=== PATIENT | female | born 1950 | race Caucasian/White ===

== ENCOUNTER → 2024-12-16 17:49 | Outpatient (REF) | payer OTHER, SELFPAY | LOC: MRI 3T 17:49 | PROVIDERS: ATTENDING PHYSICIAN Orthopaedic Surgery; FAMILY PHYSICIAN Family Medicine | DX: M23.91 Unspecified internal derangement of right knee (principal) | CPT/HCPCS: 73721 ==

== ENCOUNTER 2025-05-07 17:08 | Emergency (ER) | payer OTHER, SELFPAY ==
[2025-05-07 17:16] VITALS: BP 176/87
[2025-05-07 17:54] LABS: % Basophils 0.7 % (0-2); % Eosinophils 1.6 % (0-6); % Immature Granulocytes 0.3 % (0-0.5); % Lymphocytes 22.3 % (20.5-51.1); % Monocytes 6.6 % (1.7-9.3); % Neutrophils 68.5 % (42.2-75.2); Absolute Basophils 0.1 10^3/uL (0-0.2); Absolute Eosinophils 0.1 10^3/uL (0-0.7); Absolute Lymphocytes 1.9 10^3/uL (1.2-3.4); Absolute Monocytes 0.6 10^3/uL (0.1-0.6); Absolute Neutrophils 5.9 10^3/uL (1.4-6.5); Hematocrit 41.6 % (37.0-47.0); Hemoglobin 14.5 g/dL (12.0-16.0); Mean Corp Hgb Conc. 34.9 g/dL (33.0-37.0); Mean Corpuscular Hgb 32.2 pg (27.0-31.0); Mean Corpuscular Volume 92.4 fL (81.0-99.0); Mean Platelet Volume 9.4 fL (7.4-10.4); Nucleated Red Blood Cells % 0 %; Platelet Count 294 10^3/uL (130-400); Red Cell Dist. Width 12.6 % (11.5-14.5); White Blood Cell Count 8.6 10^3/uL (4.8-10.8)
[2025-05-07 18:00] VITALS: BP 126/78
[2025-05-07 18:06] LABS: INR 0.95; PT 12.9 Sec (11.4-14.6)
--- NOTE | 2025-05-07 18:14 | ED.GENMED ---
History of Present Illness
General
Chief Complaint: Heart Rate Problem
Source: patient
Time Seen by Provider: 05/07/25 17:41
History of Present Illness
History of Present Illness:
Note:
CHIEF COMPLAINT(S)
Persistent numbness, depression, poor sleep quality, and anxiety.
HISTORY OF PRESENT ILLNESS
The patient is a 74-year-old female with a history of alcohol recovery and long-term use of antidepressants, presenting with a several-week history of persistent numbness, depression, and anxiety. The patient reports a previous leg injury that
triggered feelings of helplessness, and associates these symptoms with her PTSD. She has been weaned off clonidine and Lexapro, and her current regimen is insufficient. She experiences sleep disturbances, averaging four hours of sleep per night,
sometimes accompanied by nightmares and feelings of faintness. The patient is also concerned about potential withdrawal symptoms from the cessation of her prior medications. She reports recurrent headaches and feelings of frustration and fear
regarding her mental state.
ADDITIONAL HISTORY OBTAINED FROM SOURCES OTHER THAN THE PATIENT
No information discussed.
EXTERNAL RECORDS REVIEWED
No information discussed.
CHRONIC MEDICAL CONDITIONS SIGNIFICANTLY AFFECTING CARE
- Alcohol recovery
- PTSD
- Panic disorder
- History of myocardial infarction in 2002
SOCIAL DETERMINANTS AFFECTING HEALTH
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
MEDICATIONS
- Previous clonidine and Lexapro were discontinued.
- PRN clonazepam 0.5 mg for anxiety and sleep.
REVIEW OF SYSTEMS
- Neurological: Complains of persistent numbness and headache.
- Psychiatric: Depression, anxiety, PTSD, poor sleep, feeling emotionally numb, frustrated, and fearful.
- Cardiovascular: Concerns of dehydration and history of myocardial infarction.
- Musculoskeletal: History of a leg injury, healed through rest.
- General: Overall weakness and fatigue.
PHYSICAL EXAM
- General: Vital signs reviewed. Pupils are equal, round, and reactive to light. The neurological assessment shows no focal deficits, and cranial nerves are intact. Psychiatric assessment reveals normal insight and judgment.
- Cardiovascular: Heart rhythm is regular with no murmurs detected.
- Respiratory: Lungs are clear to auscultation and there is no evidence of respiratory distress.
- Abdominal: The abdomen is non-tender on examination.
PROBLEM LIST
Acute Problems:
- Numbness
- Depression
- Sleep disturbances
- Headache
Chronic Problems:
- PTSD
- Panic disorder
PLAN
The patient will undergo laboratory evaluations to check sodium levels, hemoglobin, white blood cell count, and hormonal levels. After reviewing these findings, a more targeted plan will be developed.
DIFFERENTIAL DIAGNOSIS
The Differential Diagnosis includes, in no particular order and is not limited to:
1. Major depressive disorder
2. Generalized anxiety disorder
3. Medication withdrawal syndrome
4. PTSD exacerbation
5. Sleep disorder
6. Chronic pain syndrome
7. Substance-induced mood disorder
8. Cognitive dysfunction secondary to vascular issues
9. Electrolyte imbalance
10. Hormonal imbalance
Disposition:
DIAGNOSIS
- Generalized Anxiety Disorder (F41.1)
- Major Depressive Disorder (F32.9)
SUMMARY OF ENCOUNTER
The patient, a 74-year-old female, presented with persistent numbness, depression, anxiety, and sleep disturbances. She has been off her previous medications, including clonidine and Lexapro, which has likely contributed to her current mental health
state. Concerned about possible withdrawal symptoms, she reported recurrent headaches and sleep disturbances with only four hours of sleep per night accompanied by nightmares. After evaluation, her condition was determined to not require emergent
intervention at this time.
DISPOSITION
Discharge
CONSIDERATION FOR ADMISSION
There is no definitive need for admission. The patients condition warrants close outpatient psychiatric follow-up for medication management.
ASSESSMENT
The patients symptoms appear to be related to previous medication discontinuation and are consistent with her history of depression, anxiety, and PTSD.
PLAN
The plan is to refer the patient back to her psychiatrist for further management and consideration of resuming or adjusting her medication regimen, taking into account her history of trials with multiple antidepressants and antipsychotics.
INDEPENDENT INTERPRETATION OF TESTS
My independent interpretation of the CBC is normal, indicating no acute infection or hematological abnormalities.
My independent interpretation of the CMP is normal, suggesting no electrolyte imbalance or organ dysfunction.
My independent interpretation of the EKG is normal, indicating her cardiovascular status is stable.
FOLLOW-UP INSTRUCTIONS
The patient should follow up closely with her psychiatrist to adjust medications as necessary.
MEDICAL DECISION MAKING
Number and Complexity of Problems Addressed: The patient presented with sleep disturbances, numbness, depression, and anxiety. Her past and present medication history, coupled with her psychiatric conditions, demand close scrutiny and highlight the
complexity of her case.
Data: The normal CBC, CMP, and EKG results were all interpreted and confirm no acute physiological derangements impacting the current symptoms.
Risk: The patients care plan was impacted by her psychiatric condition and need for outpatient management concerning her psychiatric medication adjustment.
Phy Exam
Physical Exam
Physical Exam:
.
Course
Orders/Labs/Results
Orders:
Orders
05/07/25 17:12
EKG [Electrocardiogram (*1)] Urgent
Reason for Study: Chest Pain
EKG- Treatment ONCE
05/07/25 17:47
Complete Blood Count/With Diff Urgent
Comprehensive Metabolic Panel Urgent
Prothrombin Time Urgent
Troponin I Urgent
Abnormal Lab Results
05/07/25
17:47
MCH 32.2 H pg
(27.0-31.0)
Creatinine 0.5 L mg/dL
(0.6-1.0)
Glucose 105 H mg/dl
(70-99)
05/07/25 17:47
05/07/25 17:47
Vital Signs
Initial and Last Documented VS:
Initial Vital Signs
Temp Pulse Resp BP Pulse Ox
97.8 F 91 16 176/87 98
05/07/25 17:16 05/07/25 17:16 05/07/25 17:16 05/07/25 17:16 05/07/25 17:16
Last Documented Vital Signs
Temp Pulse Resp BP Pulse Ox
97.8 F 80 19 134/82 98
05/07/25 17:16 05/07/25 19:03 05/07/25 19:03 05/07/25 19:10 05/07/25 19:03
*Pulse Oximetry
Patient hypoxic: no
Comment: 98%
*EKG
Interpreted by ED Provider?: Yes
Interpretation: normal
Rate: normal
Rhythm: sinus
[place]: normal axis
QRS Pattern: normal QRS
Ischemia: no ischemia
*Critical Care Note
Total Time (30-74mins, 75-104mins- exclusive of procedures): Not Applicable
ED Attending Note
-
Portions of this chart may have been created with voice recognition software.� Occasional wrong word or��sound alike� substitutions may have occurred due to the inherent limitations of voice recognition software.
Discharge Plan
Departure
Patient Disposition: Home (Routine Discharge)
Date of Disposition: 05/07/25
Time of Disposition: 18:56
Patient with high blood pressure during this ER visit?: No
Discharge Problem:
Major depression
Instructions: Depression in adults
Referrals:
Castillo Roman DO [Family Provider, Family Practice]
Activity Restrictions/Additional Instructions:
Please see your doctor in the next 3 days for follow-up and reevaluation to reconsider your medication list. Return immediately for suicidal thoughts, worsening symptoms, chest pain, shortness of breath or any other concerns.
Interventions
Interventions:
*Risk Screen - Suicide Last Done: 05/07/25 17:16
*General Assessment Last Done: 05/07/25 17:45
*Neglect/Abuse Screening Last Done: 05/07/25 17:45
*ED- Fall Risk Assessment Last Done: 05/07/25 19:00
*ED COVID-19 Vaccine History Last Done: 05/07/25 17:45
*Nursing Disposition Last Done: 05/07/25 19:13
ED- Cardiac Assessment Last Done: 05/07/25 17:45
ED- Pulmonary Assessment Last Done: 05/07/25 17:45
Discharge Date and Time
Discharge Date/Time: 05/07/25 19:35
Print Language: SAO TOMEAN
[2025-05-07 18:15] LABS: ALT (SGPT) 19 U/L (0-35); AST (SGOT) 21 U/L (14-36); Albumin 4.2 g/dl (3.5-5.0); Alkaline Phosphatase 51 U/L (38-126); Blood Urea Nitrogen 16 mg/dl (7-17); Calcium 9.6 mg/dl (8.4-10.2); Carbon Dioxide 27 mmol/L (22-30); Chloride 106 mmol/L (98-107); Glucose 105 mg/dl (70-99); Potassium 4.2 mmol/L (3.5-5.1); Sodium 139 mmol/L (135-145); Total Bilirubin 0.4 mg/dl (0.2-1.3); Total Protein 6.8 g/dl (6.3-8.2); eGFR > 60.00
[2025-05-07 18:28] LABS: Troponin I < 0.012 ng/ml
[2025-05-07 19:10] VITALS: BP 134/82
== END 2025-05-07 19:35 | disposition home or self-care (01) ==
LOC: EMR 17:08
PROVIDERS: EMERGENCY PHYSICIAN Emergency Medicine; FAMILY PHYSICIAN Family Medicine
DX: F32.9 Major depressive disorder, single episode, unspecified (principal); F41.1 Generalized anxiety disorder; R20.0 Anesthesia of skin; R53.1 Weakness; R53.83 Other fatigue; F43.10 Post-traumatic stress disorder, unspecified; G47.9 Sleep disorder, unspecified; R51.9 Headache, unspecified; F41.0 Panic disorder [episodic paroxysmal anxiety]; F10.11 Alcohol abuse, in remission; F51.5 Nightmare disorder; I25.2 Old myocardial infarction; Z88.1 Allergy status to other antibiotic agents; Z88.5 Allergy status to narcotic agent; Z88.2 Allergy status to sulfonamides; Z88.8 Allergy status to other drugs, medicaments and biological substances
CPT/HCPCS: 99284; 80053; 84484; 85025; 85610; 93005